=== PATIENT | female | born 1965 | race African-American/Black ===

== ENCOUNTER 2016-07-25 09:54 | Emergency (ER) | payer OTHER ==
[~2016-07-25] VITALS: Wt 87.0 kg
[~2016-07-25 09:54] MED LIST: ALBU8.5H3 INH; CYCL-319 PO; DOCU-144 PO; HYDR-906 PO; IBUP-1542 PO
[2016-07-25] MEDS ORDERED: ALBUTEROL/IPRATROPIUM (NEB) 3 ML AMP HHN STA (10:38)
[2016-07-25] MEDS ORDERED: DEXAMETHASONE 10 MG/ML 1 ML INJ IM ONE (11:00)
--- NOTE | 2016-07-25 11:16 | RADRPT ---
PROCEDURE: XR Chest. CLINICAL INDICATION: dyspnea TECHNIQUE: Single frontal view of the chest was obtained COMPARISON: 07/05/14 FINDINGS: The heart and mediastinum are within normal limits. There are mild left lower lobe linear atelectatic changes. The lungs are otherwise clear. There is no pleural effusion or pneumothorax. RPTAT: AA IMPRESSION: Mild left lower lobe linear atelectatic changes. .Erich Leal MD, MD Date Time Electronically viewed and signed by .Erich Leal MD, MD on 07/25/2016 11:16 .S/
[2016-07-25] MEDS ORDERED: ALBU2.5V3 NEB (11:30)
[2016-07-25] MEDS ORDERED: PRED20 PO (11:32)
[2016-07-25] MEDS ORDERED: AZIT250T94 PO (11:33)
--- NOTE | 2016-07-25 12:01 | ERD ---
ER Documentation Chief Complaint Date/Time DATE: 07/25/16 TIME: 11:55 Chief Complaint cough, fever HPI This a 51-year-old female with history of bronchitis presenting to the emergency department for productive cough of yellow sputum for 2 weeks. She states the cough is getting worse and today while she was at her psychology appointment she was coughing too much and was advised to go to the emergency department for evaluation. She additionally reports "rattling" in the mornings and evenings. She has been treated in the past with corticosteroids and albuterol for wheezing and rattling. She denies any shortness of breath or chest pain at this time. She denies all other symptoms at this time. There are no other alleviating or exacerbating factors at this time. ROS All systems reviewed and are negative except as per history of present illness. Medications Home Meds Active Scripts Azithromycin* (Zithromax*) 250 Mg Tablet, 250 MG PO .ZPACK DIRECTED, #6 TAB TAKE 500 MG (2 TABS) THE FIRST DAY THEN 250 MG (1 TAB) DAYS 2-5 Prov:DENISE ARZATE PA-C 07/25/16 Prednisone (Prednisone) 20 Mg Tab, 40 MG PO DAILY Y for start tomorrow for 5 Days, TAB Prov:DENISE ARZATE PA-C 07/25/16 Albuterol Sulfate* (Albuterol Sulfate* Neb) 0.083%-3 Ml Neb, 2.5 MG NEB Q4 Y for SHORTNESS OF BREATH, #30 EA Prov:DENISE ARZATE PA-C 07/25/16 Ibuprofen* (Motrin*) 600 Mg Tab, 600 MG PO Q6H Y for PAIN AND OR ELEVATED TEMP, #30 TAB Prov:SHELDON BO NP 04/22/16 Cyclobenzaprine Hcl* (Cyclobenzaprine Hcl*) 10 Mg Tablet, 10 MG PO TID, #15 TAB Prov:SHELDON BO NP 04/22/16 Hydrocodone/Acetaminophen (Raphine 5-325 Tablet) 1 Each Tablet, 1 TAB PO Q6H Y for PAIN, #20 TAB Prov:SHELDON BO NP 04/22/16 Reported Medications Docusate Sodium* (Colace*) Unknown Strength Capsule, PO TID, #30 CAP 04/22/16 Albuterol Sulfate* (Proair HFA*) Unknown Strength Hfa.aer.ad, INH Q4H Y for WHEEZING AND SOB, #1 INHALER 04/22/16 Allergies Allergies: Coded Allergies: No Known Allergy (Unverified , 04/22/16) PMhx/Soc History of Surgery: Yes (MYOMECTOMY, ectopic removal) Hx Neurological Disorder: No Hx Respiratory Disorders: No Hx Cardiac Disorders: Yes (HEART MURMUR) Hx Psychiatric Problems: Yes (PTSD; Anxiety) Hx Miscellaneous Medical Probl: No Hx Alcohol Use: Yes Hx Substance Use: No Hx Tobacco Use: Yes Smoking Status: Current every day smoker FmHx Noncontributory for chief complaint Physical Exam Vitals Vital Signs Date Time Temp Pulse Resp B/P Pulse Ox O2 Delivery O2 Flow Rate FiO2 07/25/16 11:02 76 18 96 21 07/25/16 10:02 98.0 71 20 139/67 100 Physical Exam INITIAL VITAL SIGNS: Reviewed by me GENERAL: The patient is well developed and appropriate for usual state of health in no apparent distress HEENT: Pupils equal, round, and reactive to light. EOMI. There is no scleral icterus. NECK: C-spine is soft and supple, there is no meningismus. There is no cervical lymphadenopathy. LUNGS: Shallow inspiratory effort. Inspiratory wheezing noted to bilateral upper lung garcia. Rhonchi noted in bilateral upper lung garcia. HEART: Regular rate and rhythm, no murmurs, clicks, rubs or gallops. ABDOMEN: Soft, non-tender, non-distended. There are bowel sounds in all four quadrants. No rebound or guarding. EXTREMITIES: There is no peripheral cyanosis or edema. No focal swelling or erythema. NEUROLOGICAL: The patient moves all four extremities with 5/5 strength. Cranial nerves II - XII are intact. Normal gait. Alert and oriented SKIN: There is no apparent rash or petechiae. HEME/LYMPHATIC: There is no evidence of excessive bruising or lymphedema. PSYCHIATRIC: The patient does not appear anxious or depressed. Results 24 hrs Current Medications Medications (Trade) Dose Ordered Sig/Argelia Route PRN Reason Start Time Stop Time Status Last Admin Dose Admin Dexamethasone (Decadron) 8 mg ONCE ONCE IM 07/25/16 11:00 07/25/16 11:01 DC 07/25/16 10:47 Albuterol/ Ipratropium (Duoneb) 3 ml ONCE STAT HHN 07/25/16 10:38 07/25/16 10:42 DC 07/25/16 11:00 Procedures/MDM Imaging: PROCEDURE: XR Chest. CLINICAL INDICATION: dyspnea TECHNIQUE: Single frontal view of the chest was obtained COMPARISON: 07/05/14 FINDINGS: The heart and mediastinum are within normal limits. There are mild left lower lobe linear atelectatic changes. The lungs are otherwise clear. There is no pleural effusion or pneumothorax. RPTAT: AA IMPRESSION: Mild left lower lobe linear atelectatic changes. Medications: The patient was given an injection of Decadron and medication nebulizer in the department for therapeutic relief of wheezing. MDM: 51-year-old female presents to the emergency department for productive cough and rattling in the lungs for 2 weeks. On physical examination there is inspiratory wheezing auscultated as well as rhonchi. I have ordered a chest x- ray looking for any signs of bronchitis or pneumonia. I have ordered a breathing treatment in the department for therapeutic relief of the patient's symptoms. I have ordered an injection of Decadron for inspiratory wheezing. After treatment in the department patient was feeling improved. The patient's oxygen saturation remained between 99-100% in the department. Imaging study revealed atelectasis. The patient's primary diagnosis is cough with secondary diagnosis of wheezing. Disposition: I believe the patient is suitable for outpatient treatment at this time she will be discharged home. The patient will be prescribed medication nebulizer for use at home as well as prednisone and a Z-Morris for prophylaxis of pneumonia. The patient agrees with the diagnosis and understands the plan. All questions and concerns of been addressed at this time. Departure Diagnosis: Primary Impression: Cough Additional Impression: Wheezing Condition: Stable Patient Instructions: Bronchitis With Wheezing (Adult), Cough, Chronic, Uncertain Cause, (Adult) Additional Instructions: Follow-up with your primary care physician within 1 week. Return to the emergency department immediately should you have any new or worsening symptoms, uncontrolled fevers, or other unexplained symptoms. Take all medications as directed. DENISE ARZATE PA-C Jul 25, 2016 12:00
== END 2016-07-25 13:11 | disposition home or self-care (01) ==
LOC: FTE 09:54
DX: R05 Cough (principal); R06.2 Wheezing; F17.210 Nicotine dependence, cigarettes, uncomplicated
CPT/HCPCS: 71010; 94664; 96372; J1100; Z7502; Z7610

== ENCOUNTER 2016-08-06 12:05 | Emergency (ER) | END 2016-08-06 15:30 | disposition home or self-care (01) | DX: T18.9XXA Foreign body of alimentary tract, part unspecified, initial encounter (principal); J06.9 Acute upper respiratory infection, unspecified; R06.2 Wheezing; F17.210 Nicotine dependence, cigarettes, uncomplicated; X58.XXXA Exposure to other specified factors, initial encounter; Y92.9 Unspecified place or not applicable | CPT/HCPCS: 71010; 74000; 94664; Z7502; Z7610 ==